=== PATIENT | female | born 1945 | race Caucasian/White ===

== ENCOUNTER 2017-01-07 14:49 | Emergency (ER) | payer OTHER ==
[~2017-01-07] VITALS: Ht 157.5 cm; Wt 69.9 kg
[~2017-01-07 14:49] MED LIST: ATOR10TA60; CARV25TA2; FURO20TA3; LISI-334; POTA20TA12
--- NOTE | 2017-01-07 15:33 | RAD ---
EXAM: Chest, single view. HISTORY: Shortness of air. COMPARISON: None. FINDINGS: A frontal view of the chest is obtained. There is no infiltrate, effusion or pneumothorax. The heart is normal in size. There is a cardiac pacemaker defibrillator with leads in expected position. IMPRESSION: No acute pulmonary finding.
--- NOTE | 2017-01-07 15:35 | PHYS DOC ---
Past Medical History Past Medical History: Hypertension, Pneumonia, Other Additional Past Medical Histor: CARDIOMYOPATHY Past Surgical History: Cholecystectomy, Pacemaker Additional Past Surgical Histo: AICD DEFIB, PARTIAL Alcohol Use: None Drug Use: None Adult General Chief Complaint Chief Complaint: SHORTNESS OF BREATH HPI HPI 31-year-old female who's had worsening shortness of breath and cough for the last 3 weeks. Patient is a smoker and has been smoking with her symptoms. She states she's been using her albuterol inhaler every few hours without relief. She was in to see Dr. Randolph today who follows her for a nonischemic cardiomyopathy. She denies any chest pain with her symptoms. Review of Systems Review of Systems Constitutional: Denies fever or chills [] Eyes: Denies change in visual acuity, redness, or eye pain [] HENT: Denies nasal congestion or sore throat [] Respiratory: Has cough, has shortness of breath [] Cardiovascular: No additional information not addressed in HPI [] GI: Denies abdominal pain, nausea, vomiting, bloody stools or diarrhea [] : Denies dysuria or hematuria [] Musculoskeletal: Denies back pain or joint pain [] Integument: Denies rash or skin lesions [] Neurologic: Denies headache, focal weakness or sensory changes [] Endocrine: Denies polyuria or polydipsia [] Current Medications Current Medications Current Medications Medications (Trade) Dose Ordered Sig/[facility] Start Time Stop Time Status Last Admin Dose Admin Albuterol/ Ipratropium (Duoneb) 3 ml 1X ONCE 01/07/17 15:45 01/07/17 15:46 DC 01/07/17 16:11 3 ML Methylprednisolone Sodium Succinate (Solu-Medrol 125mg Vial) 125 mg 1X ONCE 01/07/17 15:45 01/07/17 15:46 DC 01/07/17 16:00 125 MG Allergies Allergies Allergies Coded Allergies Type Severity Reaction Last Updated Verified codeine Adverse Reaction Mild Nausea 01/08/16 Yes Physical Exam Physical Exam Constitutional: Well developed, well nourished, no acute distress, non-toxic appearance. [] HENT: Normocephalic, atraumatic, bilateral external ears normal, oropharynx moist, no oral exudates, nose normal. [] Eyes: PERRLA, EOMI, conjunctiva normal, no discharge. [] Neck: Normal range of motion, no tenderness, supple, no stridor. [] Cardiovascular:Heart rate regular rhythm, no murmur [] Lungs & Thorax: Decreased bilaterally with a slight expiratory wheeze [] Abdomen: Bowel sounds normal, soft, no tenderness, no masses, no pulsatile masses. [] Skin: Warm, dry, no erythema, no rash. [] Back: No tenderness, no CVA tenderness. [] Extremities: No tenderness, no cyanosis, no clubbing, ROM intact, no edema. [] Neurologic: Alert and oriented X 3, normal motor function, normal sensory function, no focal deficits noted. [] Psychologic: Affect normal, judgement normal, mood normal. [] Current Patient Data Vital Signs Vital Signs Date Time Temp Pulse Resp B/P Pulse Ox O2 Delivery O2 Flow Rate FiO2 01/07/17 16:15 95 Room Air 01/07/17 15:00 97.7 76 20 157/63 97.7 Lab Values Laboratory Tests Test 01/07/17 15:31 White Blood Count 9.0x10^3/uL (4.0-11.0) Red Blood Count 4.86x10^6/uL (3.50-5.40) Hemoglobin 15.0g/dL (12.0-15.5) Hematocrit 44.7% (36.0-47.0) Mean Corpuscular Volume 92fL (79-100) Mean Corpuscular Hemoglobin 31pg (25-35) Mean Corpuscular Hemoglobin Concent 34g/dL (31-37) Red Cell Distribution Width 14.2% (11.5-14.5) Platelet Count 219x10^3/uL (140-400) Neutrophils (%) (Auto) 63% (31-73) Lymphocytes (%) (Auto) 30% (24-48) Monocytes (%) (Auto) 5% (0-9) Eosinophils (%) (Auto) 1% (0-3) Basophils (%) (Auto) 1% (0-3) Neutrophils # (Auto) 5.7x10^3uL (1.8-7.7) Lymphocytes # (Auto) 2.7x10^3/uL (1.0-4.8) Monocytes # (Auto) 0.5x10^3/uL (0.0-1.1) Eosinophils # (Auto) 0.1x10^3/uL (0.0-0.7) Basophils # (Auto) 0.1x10^3/uL (0.0-0.2) D-Dimer (Angelita) 0.37ug/mlFEU (0.00-0.50) Sodium Level 136mmol/L (136-145) Potassium Level 4.2mmol/L (3.5-5.1) Chloride Level 100mmol/L (98-107) Carbon Dioxide Level 29mmol/L (21-32) Anion Gap 7 (6-14) Blood Urea Nitrogen 13mg/dL (7-20) Creatinine 1.0mg/dL (0.6-1.0) Estimated GFR (Cockcroft-Gault) 54.3 Glucose Level 133mg/dL (70-99) H Calcium Level 9.4mg/dL (8.5-10.1) Troponin I Quantitative < 0.017ng/mL (0.000-0.055) TG-Dez-C-Type Natriuretic Peptide 179pg/mL (0-124) H Laboratory Tests 01/07/17 15:31 Laboratory Tests 01/07/17 15:31 EKG EKG EKG as interpreted by ks shows a sinus rhythm with a rate of 69 bpm. There is a right axis. There is evidence of a right bundle-branch block. There are no obvious ischemic findings. Radiology/Procedures Radiology/Procedures One view of the chest as interpreted by the radiologist did not demonstrate an acute cardiopulmonary process. Course & Med Decision Making Course & Med Decision Making Pertinent Labs and Imaging studies reviewed. (See chart for details) This 70-year-old female is having significant cough and dyspnea will have full laboratory workup including EKG and chest x-ray. At this time her chest x-ray appears unremarkable. EKG did not reveal any obvious findings. A breathing treatment will be given. A dose of solumedrol will be administered. Laboratory workup is unremarkable including a set of cardiac enzymes and a d- dimer. Her chest film did not reveal any acute findings. Patient maintained good O2 saturation while observing the department for several hours saturating in the near [id number] range. Patient was reassessed multiple times and appears in to be in no distress whatsoever. She prefer not to stay. I believe a course of Levaquin and prednisone is warranted for the duration of her symptoms that she is having with close follow-up with Dr. Vieira. Patient successfully ambulated around the department without any significant desaturation. Dragon Disclaimer Dragon Disclaimer This electronic medical record was generated, in whole or in part, using a voice recognition dictation system. Departure Departure Impression: Primary Impression: Cough Additional Impression: Shortness of breath Disposition: HOME, SELF-CARE Admitting Physician: Other Condition: STABLE Referrals: NO PCP (PCP) LYNNE VIEIRA MD Patient Instructions: Cough, Adult, [id number] Additional Instructions: Please follow up with your primary doctor in the next several days for your ongoing cough and shortness of breath. Continue taking your inhaler as needed. Take your steroid and antibiotic as prescribed. Abstain from any smoking while you are ill. Return to the ER if you develop any worsening of your shortness of breath or develop any chest pain. Scripts Benzonatate (Tessalon Perle)100 Mg Myxjvkt418 Mg PO TID PRN COUGH #15 CAP Prov:ORVILLE CEVALLOS DO 01/07/17 Prednisone 50 Mg Tablet1 Tab PO DAILY #5 TAB Prov:ORVILLE CEVALLOS DO 01/07/17 Levofloxacin (Levaquin)750 Mg Bggamp611 Mg PO DAILY #5 TAB Prov:ORVILLE CEVALLOS DO 01/07/17 Problem Qualifiers ORVILLE CEVALLOS DO Jan 07, 2017 15:35
[2017-01-07] MEDS ORDERED: methylPREDNISolone SOD SUCC PF 125 MG/2 ML VIAL. IV ONE (15:45)
[2017-01-07] MEDS ORDERED: IPRATRPIUM/ALBUTEROL 0.5/2.5MG 3 ML NEBU. NEB ONE (15:45)
[2017-01-07 15:47] LABS: BASO # 0.1 x10^3/uL (0.0-0.2); BASO % 1 % (0-3); EOS % 1 % (0-3); HEMATOCRIT 44.7 % (36.0-47.0); LYMPH # 2.7 x10^3/uL (1.0-4.8); LYMPH % 30 % (24-48); MEAN CORPUSCULAR HEMOGLOBIN 31 pg (25-35); MEAN CORPUSCULAR HGB CONC 34 g/dL (31-37); MEAN CORPUSCULAR VOLUME 92 fL (79-100); MONO % 5 % (0-9); NEUT % 63 % (31-73); PLATELET COUNT 219 x10^3/uL (140-400); RED BLOOD COUNT 4.86 x10^6/uL (3.50-5.40); RED CELL DISTRIBUTION WIDTH 14.2 % (11.5-14.5)
[2017-01-07 15:55] LABS: CALCIUM 9.4 mg/dL (8.5-10.1); GFR 54.3; POTASSIUM 4.2 mmol/L (3.5-5.1)
[2017-01-07] MEDS ORDERED: LEVO750T31 PO (17:07)
[2017-01-07] MEDS ORDERED: BENZ100C PO (17:08)
[2017-01-07] MEDS ORDERED: PRED50TA PO (17:08)
[2017-01-07 17:30] VITALS: BP 123/74
--- NOTE | 2017-01-09 06:50 | EKG ---
[facility] [address] [place] [address] Test Date: 2017-01-07 Test Time: 15:18:10 Pat Name: REINA EDMOND Department: Room: Gender: F Equities Trader: : 1945 Requested By: ORVILLE CEVALLOS Order Number: [id number] Reading MD: Denia Mejias Measurements Intervals [place] Rate: 69 P: 90 IL: 124 QRS: -117 QRSD: 146 T: 55 QT: 450 QTc: 484 Interpretive Statements SINUS RHYTHM ELECTRONIC PACEMAKER. A SENSED AND V PACED. ABNORMAL ECG Electronically Signed On 01-09-2017 21:53:38 CDT by Denia Mejias
== END 2017-01-07 17:42 | disposition home or self-care (01) ==
LOC: ER 14:49
DX: R05 Cough (principal); R06.02 Shortness of breath; F17.200 Nicotine dependence, unspecified, uncomplicated; I11.9 Hypertensive heart disease without heart failure; Z95.810 Presence of automatic (implantable) cardiac defibrillator; Z88.5 Allergy status to narcotic agent; Z87.01 Personal history of pneumonia (recurrent); Z79.899 Other long term (current) drug therapy
CPT/HCPCS: 36415; 71010; 80048; 83880; 84484; 85027; 85379; 93005; 94250; 94640; 96374; 99285; J2930; J7620

== ENCOUNTER → 2019-01-04 | Outpatient (CLI) | payer OTHER ==
[~2019-01-04] MED LIST changes: +BENZ100C PO; +LEVO750T31 PO; +PRED50TA PO
--- NOTE | 2019-01-04 15:35 | CARD ---
MR#: [id number] Date of Study: 01/04/2019 Ordering Physician: NICK HENRIQUEZ, Referring Physician: NICK HENRIQUEZ, Tech: Virgie Foss RDCS APPROVED REPORT EXAM: Two-dimensional and M-mode echocardiogram with Doppler and color Doppler. Other Information Quality : Good INDICATION Congestive Heart Failure Surgery/Intervention ICD/Pacemaker: Date: 2011 2D DIMENSIONS RVDd2.3 (2.9-3.5cm)Left Atrium(2D)3.5 (1.6-4.0cm) IVSd1.1 (0.7-1.1cm)Aortic Root(2D)2.5 (2.0-3.7cm) LVDd4.8 (3.9-5.9cm)LVOT Diameter2.0 (1.8-2.4cm) PWd1.0 (0.7-1.1cm)LVDs3.6 (2.5-4.0cm) FS (%) 24.7 %SV53.6 ml LVEF(%)48.8 (>50%) Aortic Valve AoV Peak Moises.150.9cm/sAoV VTI35.6cm AO Peak GR.9.1mmHgLVOT Peak Moises.110.7cm/s LVOT VTI 28.09cmAO Mean GR.6mmHg RENNY (VMAX)2.38qk5DGN (VTI)2.44cm2 Mitral Valve MV E Ycitvusd36.7cm/sMV DECEL HIJG015jn MV A Ygsrgumg41.3cm/sMV VSG52kr E/A Ratio0.8MVA (PHT)3.87cm2 TDI E/Lateral E'27.2E/Medial E'23.3 Pulmonary Vein S1 Sbwoqlyy87.4cm/sD2 Xoqnlyhk80.9cm/s LEFT VENTRICLE The left ventricle is normal size. There is normal left ventricular wall thickness. The left ventricu lar systolic function is normal. The Ejection Fraction is 55%. Apical motion consistent with pacemake r activation. Transmitral Doppler flow pattern is Grade I-abnormal relaxation pattern. RIGHT VENTRICLE The right ventricle is normal size. The right ventricular systolic function is normal. There is a pac emaker lead in the right ventricle. ATRIA The left atrium size is normal. The right atrium size is normal. A pacemaker is seen in the right atr ium consistent with history. The interatrial septum is intact with no evidence for an atrial septal d efect or patent foramen ovale as noted on 2-D or Doppler imaging. AORTIC VALVE The aortic valve is calcified but opens well. Doppler and Color Flow revealed no significant aortic r egurgitation. There is no significant aortic valvular stenosis. MITRAL VALVE The mitral valve is calcified but opens well. There is no evidence of mitral valve prolapse. There is no mitral valve stenosis. Doppler and Color-flow revealed trace to mild mitral regurgitation. TRICUSPID VALVE The tricuspid valve is normal in structure and function. Doppler and Color Flow revealed no tricuspid valve regurgitation noted. There is no tricuspid valve stenosis. PULMONIC VALVE The pulmonic valve is not well visualized. Doppler and Color Flow revealed no pulmonic valvular regur gitation. There is no pulmonic valvular stenosis. GREAT VESSELS The aortic root is normal in size. The ascending aorta is normal in size. The IVC is normal in size a nd collapses >50% with inspiration. PERICARDIAL EFFUSION There is no evidence of significant pericardial effusion. Critical Notification Critical Value: No <Conclusion> The left ventricular systolic function is normal. The Ejection Fraction is 55%. Transmitral Doppler flow pattern is Grade I-abnormal relaxation pattern. A pacemaker is seen in the right atrium consistent with history. Trace to mild mitral regurgitation. There is no evidence of significant pericardial effusion. Signed by : Papa Byrnes, Electronically Approved : 01/04/2019 15:34:55
== END | disposition home or self-care (01) ==
LOC: ECHO 14:26
PROVIDERS: ATTEND Internal Medicine Cardiovascular Disease
DX: I11.0 Hypertensive heart disease with heart failure (principal); I50.22 Chronic systolic (congestive) heart failure; Z95.0 Presence of cardiac pacemaker
CPT/HCPCS: 93306

== ENCOUNTER → 2020-06-12 | Outpatient (CLI) | payer MEDICARE ==
--- NOTE | 2020-06-12 16:11 | CARD ---
MR#: [id number] Date of Study: 06/12/2020 Ordering Physician: NICK ZAPATA, Referring Physician: NICK ZAPATA, Tech: Virgie Foss IMMANUEL APPROVED REPORT EXAM: Two-dimensional and M-mode echocardiogram with Doppler and color Doppler. Other Information Quality : Good INDICATION Congestive Heart Failure Surgery/Intervention ICD/Pacemaker: Date: 07/2012 2D DIMENSIONS RVDd2.3 (2.9-3.5cm)Left Atrium(2D)3.5 (1.6-4.0cm) IVSd1.0 (0.7-1.1cm)Aortic Root(2D)2.7 (2.0-3.7cm) LVDd4.8 (3.9-5.9cm)LVOT Diameter2.0 (1.8-2.4cm) PWd1.0 (0.7-1.1cm)LVDs3.3 (2.5-4.0cm) FS (%) 30.9 %SV61.4 ml Aortic Valve AoV Peak Moises.165.5cm/sAoV VTI31.0cm AO Peak GR.11.0mmHgLVOT Peak Moises.77.9cm/s AO Mean GR.6mmHgAVA (VMAX)1.53cm2 RENNY (VTI)1.80cm2 Mitral Valve MV E Ydwgqbzp42.1cm/sMV DECEL QGBZ416qk MV A Gzgvprai79.4cm/sE/A Ratio0.7 Pulmonary Vein S1 Acxtxqyg20.8cm/sD2 Kxfidmtd31.2cm/s LEFT VENTRICLE The left ventricle is normal size. There is normal left ventricular wall thickness. The left ventricu lar systolic function is normal and the ejection fraction is within normal range. The Ejection Fracti on is 50-55%. Apical motion consistent with pacemaker activation. Transmitral Doppler flow pattern is Grade I-abnormal relaxation pattern. RIGHT VENTRICLE The right ventricle is normal size. The right ventricular systolic function is normal. There is a pac emaker lead in the right ventricle. ATRIA The left atrium size is normal. The right atrium size is normal. A pacemaker is seen in the right atr ium consistent with history. The interatrial septum is intact with no evidence for an atrial septal d efect or patent foramen ovale as noted on 2-D or Doppler imaging. AORTIC VALVE The aortic valve is calcified but opens well. Doppler and Color Flow revealed no significant aortic r egurgitation. There is no significant aortic valvular stenosis. MITRAL VALVE The mitral valve is normal in structure and function. There is no evidence of mitral valve prolapse. There is no mitral valve stenosis. Doppler and Color-flow revealed trace mitral regurgitation. TRICUSPID VALVE The tricuspid valve is normal in structure and function. Doppler and Color Flow revealed trace tricus pid valve regurgitation. There is no tricuspid valve stenosis. PULMONIC VALVE The pulmonic valve is not well visualized. Doppler and Color Flow revealed no pulmonic valvular regur gitation. There is no pulmonic valvular stenosis. GREAT VESSELS The aortic root is normal in size. The ascending aorta is normal in size. The IVC is normal in size a nd collapses >50% with inspiration. PERICARDIAL EFFUSION There is a trace circumferential pericardial effusion with no hemodynamic significance. Critical Notification Critical Value: No <Conclusion> The left ventricle is normal size. The left ventricular systolic function is normal and the ejection fraction is within normal range. The Ejection Fraction is 50-55%. Apical motion consistent with pacemaker activation. Doppler and Color Flow revealed no significant aortic regurgitation. There is no significant aortic valvular stenosis. Doppler and Color-flow revealed trace mitral regurgitation. Doppler and Color Flow revealed trace tricuspid valve regurgitation. Signed by : Nick Zapata MD Electronically Approved : 06/12/2020 16:11:06
== END | disposition home or self-care (01) ==
LOC: ECHO 13:42
PROVIDERS: ATTEND Internal Medicine Cardiovascular Disease
DX: I35.1 Nonrheumatic aortic (valve) insufficiency (principal); I50.22 Chronic systolic (congestive) heart failure; Z95.0 Presence of cardiac pacemaker
CPT/HCPCS: 93306

== ENCOUNTER → 2020-07-25 | Outpatient (CLI) | payer MEDICARE ==
[~2020-07-25] MED LIST changes: +ALEN70TA3 PO; +ASPI-630 PO; +ERGO2000 PO; +IPRA4AER IH
== END ==
LOC: LAB 14:46
PROVIDERS: ATTEND Internal Medicine Cardiovascular Disease
DX: Z01.812 Encounter for preprocedural laboratory examination (principal); Z20.828 Contact with and (suspected) exposure to other viral communicable diseases
CPT/HCPCS: U0003-CS

== ENCOUNTER 2020-07-28 08:17 | Outpatient (CLI) | payer MEDICARE ==
[~2020-07-28] VITALS: Ht 157.5 cm; Wt 63.5 kg
[2020-07-28] VITALS (9 sets, daily range): BP systolic 104–129; BP diastolic 50–78
[~2020-07-28 08:17] MED LIST changes: -ALEN70TA3 PO; -ASPI-630 PO; -ERGO2000 PO; -IPRA4AER IH
[2020-07-28 08:51] LABS: HEMATOCRIT 43.5 % (36.0-47.0); HEMOGLOBIN 15.1 g/dL (12.0-15.5); RED BLOOD COUNT 4.65 x10^6/uL (3.50-5.40); RED CELL DISTRIBUTION WIDTH 14.3 % (11.5-14.5); WHITE BLOOD COUNT 8.5 x10^3/uL (4.0-11.0)
[2020-07-28] MEDS ORDERED: ERGO2000 PO (08:57)
[2020-07-28] MEDS ORDERED: ALEN70TA3 PO (08:57)
[2020-07-28] MEDS ORDERED: IPRA4AER IH (08:57)
[2020-07-28] MEDS ORDERED: ASPI-630 PO (08:57)
[2020-07-28 08:58] LABS: CALCIUM 9.7 mg/dL (8.5-10.1); CREATININE 1.1 mg/dL (0.6-1.0); GFR 48.2; POTASSIUM 3.7 mmol/L (3.5-5.1)
[2020-07-28] MEDS ORDERED: ceFAZolin SODIUM IV Push 1 GM VIAL. IVP ONE (09:00)
[2020-07-28] MEDS ORDERED: BACITRACIN 50,000 UNIT in IV NORMAL SALINE 250ML 250 ML IRR ONE (09:00)
[2020-07-28 09:01] LABS: PROTHROMBIN TIME PATIENT 11.8 SEC (11.7-14.0)
--- NOTE | 2020-07-28 09:03 | EKG ---
[facility] [address] [place] [address] Test Date: 2020-07-28 Test Time: 09:01:54 Pat Name: REINA EDMOND Department: Room: Gender: F Sand Bobber: KIET : 1945 Requested By: BETTE RAIN Order Number: [id number] Reading MD: Measurements Intervals [place] Rate: 60 P: 90 AR: 138 QRS: 229 QRSD: 160 T: 56 QT: 460 QTc: 465 Interpretive Statements SINUS RHYTHM ABNORMAL RIGHT SUPERIOR AXIS DEVIATION NON SPECIFIC INTRAVENTRICULAR BLOCK CONSIDER RIGHT VENTRICULAR HYPERTROPHY ABNORMAL ECG RI6.02 Compared to ECG 01/07/2017 15:18:10 Right superior axis now present
[2020-07-28] MEDS ORDERED: LIDOCAINE 2%/EPI 1:100,000 20 ML VIAL. ONE (10:10)
[2020-07-28] MEDS ORDERED: MIDAZOLAM HCL/PF 5 MG/5 ML VIAL. ONE (10:25)
[2020-07-28] MEDS ORDERED: fentaNYL PF VIAL 100 MCG/2 ML VIAL ONE (10:25)
[2020-07-28] MEDS ORDERED: MIDAZOLAM HCL/PF 5 MG/5 ML VIAL. IV ONE (11:15)
[2020-07-28] MEDS ORDERED: fentaNYL PF VIAL 100 MCG/2 ML VIAL IV ONE (11:15)
[2020-07-28] MEDS ORDERED: LIDOCAINE 2%/EPI 1:100,000 20 ML VIAL. IJ ONE (11:15)
--- NOTE | 2020-07-28 11:33 | PDOC ---
MODERATE SEDATION ASSESSMENT RISKS/ALTERNATIVES Risks/Alternatives Risks and alternatives of this type of sedation and procedure discussed with: RISK/ALTERNATIVES: Patient H & P ON CHART H & P H & P on chart and reviewed for co-morbid conditions and appropriate labs. H&P ON CHART: Yes STATUS PREG STATUS ASSESSED: N/A MEDS/ALLERGIES REVIEWED Meds/Allergies Reviewed Medications and Allergies including time and route of recently administered narcotics and sedatives. MEDS/ALLERGIES REVIEWED: Yes ASA RATING ASA RATING: III AIRWAY ASSESSMENT Airway Assessment Airway patency, oral function limitations, presence of caps, crowns, dentures, partials, and ability to extend neck assessed. AIRWAY ASSESSMENT: Yes MALLAMPATI SCORE MALLAMPATI SCORE: II PRE-SEDATION ASSESSMENT PRE-SEDATION ASSESSMENT: Yes BETTE RAIN MD Jul 28, 2020 11:33
--- NOTE | 2020-07-28 11:40 | CARD ---
MR#: [id number] Date of Study: 07/28/2020 Ordering Physician: BETTE BYRNES, Referring Physician: BETTE BYRNES, Tech: APPROVED REPORT PROCEDURES Medtronic biventricular ICD/THERMAL MOLDER-D generator change FL TIME: 0.0 MINS DOSE: 0.37 GYCM2 MODERATE SEDATION: 41 MINS INDICATIONS Nonischemic cardiomyopathy s/p biventricular ICD/THERMAL MOLDER-D implantation presenting with battery depletion IMPLANTED DEVICES After explaining the risks, benefits and alternative options, informed consent was obtained for mitzi stevens. Patient was brought to the cardiac [facility] and her left chest and shoulder were prepped and gabbie ped in the usual fashion. 30 cc of 2% lidocaine was infiltrated into the skin and subcutaneous tissu es for local anesthesia. An incision was made over the previous scar and using blunt dissection and cautery, the pocket was opened, the capsule exposed and opened and the previously placed generator re moved from the pocket. The leads were detached from the generator, interrogated and found to be func tioning well and reattached to a Medtronic biventricular ICD/THERMAL MOLDER-D generator model [id number], serial nu mber [id number]. This was placed in the pocket that was subsequently closed in 3 layers. Hemostasi s was secured. The right atrial lead showed a sensing amplitude of 2.0 mV, impedance of 437 ohms and a threshold of 0.75 V. The right ventricular lead showed a sensing amplitude of 17 mV, impedance of 551 ohms and a threshold of 1.0 V. The left ventricular lead showed impedance of 798 ohms and a threshold of 1.0 V. Patient tolerated the procedure well. There were no immediate complications. COMPLICATIONS Successful Medtronic biventricular ICD/THERMAL MOLDER-D generator change for battery depletion Signed by : Bette Byrnes, Electronically Approved : 07/28/2020 11:40:17
--- NOTE | 2020-07-28 13:37 | NUR ---
Discharge Note: REINA EDMOND Discharge instructions and discharge home medications reviewed with Patient and a copy given. All questions have been answered and understanding verbalized. The following instructions and handouts were given: adult moderate sedation & incision care Discontinued lines and drains: Peripheral IV intact. Patient discharged to Home or Self Care withSpousevia Wheelchair.
== END 2020-07-28 13:40 | disposition home or self-care (01) ==
LOC: CCL 08:17
PROVIDERS: ATTEND Internal Medicine Cardiovascular Disease
DX: Z45.02 Encounter for adjustment and management of automatic implantable cardiac defibrillator (principal); I42.8 Other cardiomyopathies; I45.4 Nonspecific intraventricular block; I45.10 Unspecified right bundle-branch block; I11.0 Hypertensive heart disease with heart failure; I50.9 Heart failure, unspecified; R94.31 Abnormal electrocardiogram [ECG] [EKG]; F17.210 Nicotine dependence, cigarettes, uncomplicated; Z88.5 Allergy status to narcotic agent; Z79.899 Other long term (current) drug therapy; Z79.82 Long term (current) use of aspirin
CPT/HCPCS: 33264; 36415; 80048; 85027; 85610; 93005; 99152; 99153; C1882; J0690; J2250; J3010; J3490; J7050; J7030